=== PATIENT | female | born 1975 | race Caucasian/White ===

== ENCOUNTER 2024-08-10 08:20 | Outpatient (CLI) | payer BC, SELFPAY ==
--- NOTE | ~2024-08-10 | MR_ITS ---
EXAMINATION: MR shoulder LT wo con DATE: 08/10/2024 08:54 INDICATION: Left shoulder pain with limited range of motion and numbness and tingling to the left arm TECHNIQUE: Magnetic resonance imaging (MRI) of the left shoulder was performed without intravenous co ntrast. Sequences included axial PD-weighted FS FSE, coronal oblique PD-weighted FS FSE, coronal obli que T2-weighted FS FSE, sagittal PD-weighted FS FSE, and sagittal T1-weighted SE. COMPARISON: None. FINDINGS: Coracoacromial arch: The acromion undersurface is curved in morphology (type II). Small anterior subacromial spur at the a cromial insertion of the normal coracoacromial ligament. Mild acromioclavicular osteoarthritis. Rotator cuff: Moderate supraspinatus tendinopathy without tear. The infraspinatus and teres minor tendons are anton l. Moderate subscapularis tendinopathy with small intrasubstance tear measuring approximately 4 x 6 m m along the central aspect of the lesser tuberosity footplate of the tendon. Normal rotator cuff musc le bulk and signal. Biceps tendon, glenoid labrum and glenohumeral cartilage: Long head of the biceps tendon is normal. Glenoid labrum is normal. There is mild partial-thickness c artilage loss with smooth chondral surface along the cephalad third of the glenoid and along the infe romedial aspect of the humeral head. Fluid: Mild bicipital tenosynovitis with mildly increased fluid in the long head biceps tendon sheath. Minim al glenohumeral joint effusion at the axillary recess. No loose osteochondral bodies. Mild increased fluid signal in the subacromial/subdeltoid bursa consistent with minimal bursitis. Bones: Suggestion of a possible old healed fracture at the proximal humeral diaphysis. No acute fracture or pathologic marrow replacing process. There is thickening of the biceps caroline sling with increased so ft tissue density replacing the normal T1 hyperintense fat at the rotator cuff interval which is an M R finding of adhesive capsulitis which is otherwise a clinical diagnosis. Alternatively this could re present scarring related to chronic partial tear. This no abnormal thickening of the capsule at the a xillary recess which is no other typical finding of adhesive capsulitis. IMPRESSION: 1. Mild to moderate subscapularis tendinopathy with small partial thickness intrasubstance tear at th e central lesser tuberosity footplate of the tendon. 2. Mild supraspinatus tendinopathy without tear. 3. Thickening of the superior glenohumeral and coracohumeral ligament at the rotator cuff interval wi th differential including scarring related chronic partial tear or adhesive capsulitis which is a cli nical diagnosis. 4. Mild bicipital tenosynovitis and minimal subacromial/subdeltoid bursitis. 5. Mild glenohumeral and acromioclavicular osteoarthritis. Reviewed, dictated and finalized at location B. TIER IMPRESSION: 1. Mild to moderate subscapularis tendinopathy with small partial thickness int rasubstance tear at the central lesser tuberosity footplate of the tendon. 2. Mild supraspinatus tendinopathy without tear. 3. Thickening of the superior glenohumeral and coracohumeral ligament at the ro tator cuff interval with differential including scarring related chronic partia l tear or adhesive capsulitis which is a clinical diagnosis. 4. Mild bicipital tenosynovitis and minimal subacromial/subdeltoid bursitis. 5. Mild glenohumeral and acromioclavicular osteoarthritis.
== END 2024-08-10 08:21 | disposition home or self-care (01) ==
LOC: GOSHIMG 08:20
PROVIDERS: PCP Orthopaedic Surgery; Visit Provider Orthopaedic Surgery
DX: M19.012 Primary osteoarthritis, left shoulder (principal); M75.22 Bicipital tendinitis, left shoulder
CPT/HCPCS: 73221